=== PATIENT | male | born 1945 | race Caucasian/White ===

== ENCOUNTER 2017-10-28 00:45 | Emergency (ER) | payer OTHER ==
[2017-10-28 01:13] VITALS: BMI 30.9
[2017-10-28] MEDS ORDERED: PHENERGAN INJ 25 MG IM ONE (01:41)
[2017-10-28] MEDS ORDERED: TORADOL 60 MG VIAL IM ONE (01:41)
[2017-10-28] MEDS ORDERED: TORADOL 60 MG VIAL ONE (01:44)
--- NOTE | 2017-10-28 01:44 | DR.GENAD ---
HPI - PCP Primary Care Physician: ARLENE - Complaint/Symptoms Chief Complaint:: HURTING ALL OVER. LEFT ARM HURTS REAL BAD AND TINGLES. PATIENT HAS NOT TAKEN HIS ARTHRITIS MEDICINE IN ABOUT 3 WEEKS. Self Treatment fo Chief Complaint: ALEVE 2 TABS AT 1100 AND 1 TAB AT 2300 YESTERDAY. HYDROCODONE EVERY 4HOURS LAST DOSE AT 1900 LAST NIGHT - Nurses notes reviewed Nurses Notes Review: Yes - Source History Provided: Patient - Mode of Arrival Mode of Arrival: Ambulatory - Timing Onset of Chief Complaint: 10/22/17 Came on: Gradually - Duration Duration: Constant How lon Duration: Weeks - Location Location: hurting all over - Severity Severity: Moderate - Modifying Factors Worsens:: movement Improves:: nothing PMH - PMH Past Medical History: Yes Past Medical History: CVA, Diabetes, Hypertension Past Surgical History: Yes Surgical History: Cholecystectomy, Ortho Surgery - Family History History of Family Medical Conditions: Yes Family Medical History: [place], Coronary Artery Disease, Hypertension - Social History Does patient currently use any type of tobacco product: No Have you used tobacco products in the last 12 months: No Type of Tobacco Use: None Does any household member use tobacco: No Alcohol Use: None Do you use any recreational Drugs:: No Lives With: Spouse Lives Where: Home - infectious screening In the last 2 months have you had wt loss of >10#?: NO Have you had fever, night sweats or hemotysis?: No Have you traveled outside the country in the last 6 months?: No Isolation: Standard ROS - Review of Systems Constitutional: No Symptoms Reported. negative: See HPI, Chills, Diaphoresis, Fever, Malaise, Weakness, Irritable, Fatigue, Loss of Appetite, Other Eyes: No Symptoms Reported ENTM: No Symptoms Reported Respiratoy: No Symptoms Reported. negative: See HPI, Productive Cough, Non- Productive Cough, Moist Cough, Dry Cough, Hacking Cough, Barking Cough, Brassy Cough, Orthopnea, Short of Breath, Stridor, Wheezing, Hemoptysis, Other Cardiovascular: No Symptoms Reported. negative: See HPI, Chest Pain, Edema, Palpitations, Syncope, Cyanosis, Skin Mottling, Other Gastrointestinal/Abdominal: No Symptoms Reported Genitourinary: No Symptoms Reported. negative: See HPI, Discharge, Dysuria, Frequency, Hematuria, Pain, Bleeding, Other Neurological: No Symptoms Reported Musculoskeletal: No Symptoms Reported, Left, Back, Shoulder, Elbow, Knee Integumentary: No Symptoms Reported. negative: See HPI, Change in Color, Change in Hair/Nails, Dryness, Lesions, Lumps, Rash, Itching, Wound, Bruises, Juandice, Other Hematologic/Lymphatic: No Symptoms Reported Endocrine: No Symptoms Reported Psychiatric: No Symptoms Reported. negative: See HPI, Anxiety, Depression, Hallucinations, Excessive crying, Suicidal, Other PE - Vital Signs Vitals: Temperature 99.2 F Pulse Rate 84 Respiratory Rate 16 Blood Pressure 111/59 O2 Sat by Pulse Oximetry 95 - General Limitations: No Limitations General Appearance: Alert, In Distress (moderate) - Head Head Exam: Normal Inspection, Atraumatic, Normocephalic - Eyes Eye exam: Normal Appearance, PERRL, EOMI. negative: Scleral Icterus, Conjunctival Injection, Nystagmus, Miosis, Mydrasis, Periorbital Swelling, Periorbital Tenderness, Other - ENT ENT Exam: Normal Exam, Normal Oropharynx, Normal External Ear Exam, Mucous Membranes Moist, TM's Normal Bilaterally External Ear Exam: Normal External Inspection TM/Canal Exam: Bilateral Normal Nose Exam: Normal Nose Exam Mouth Exam: Normal Inspection. negative: Drooling, Trismus, Lip Swelling, Tongue Elevation, Tongue Swelling, Laceration, Other Throat Exam: Normal Inspection - Neck Neck Exam: Normal Inspection, Full ROM, Trachea Midline. negative: Tenderness, Meningismus, Lymphadenopathy, Thyromegaly, Other - Chest Chest Inspection: Normal Inspection, Symmetric Chest Wall Rise - Respiratory Respiratory Exam: Normal Lung Sounds Bilat Respiratory Exam: Bilateral Clear to Auscultation - Cardiovascular Cardiovascular Exam: Regular Rate, Normal Rhythm, Normal Heart Sounds. negative : Bradycardia, Tachycardia, Irregular Rhythm, Systolic Murmur, Diastolic Murmur , Rubs, Gallop, Clicks, JVD, +S1, +S2, +S3, +S4, Other - Abdominal Exam Abdominal Exam: Normal Inspection, Normal Bowel Sounds, Soft Abdominal Tenderness: negative: RUQ, RLQ, LUQ, LLQ, Epigastrium, Suprapubic, Diffuse, Mild, Moderate, Severe, Other - Extremities Extremities Exam: Normal Inspection, Full ROM, Tenderness (left shoulder,knee tender with crepitus), Normal Capillary Refill. negative: Edema, Joint Swelling , Calf Tenderness, Other - Back Back Exam: Normal Inspection, Full ROM, Tenderness (lower lumbar tender on palpation) - Neurologic Neurological Exam: Alert, Oriented X3, CN II-XII Intact, Normal Gait, Reflexes Normal - Psychiatric Psychiatric Exam: Normal Affect, Normal Mood - Skin Skin Exam: Warm, Dry, Intact, Normal Color - Diagnosis Discharge Problem: Osteoarthritis, Degenerative disc disease, lumbar, Degenerative disc disease at L5-S1 level Degenerative arthritis of knee Qualifiers: Laterality: bilateral - Discharge Plan Disposition: HOME, SELF-CARE Condition: Stable Prescriptions: Ketorolac Tromethamine [Toradol Tab] 10 mg PO BID PRN #8 tab PRN Reason: Pain - Follow ups/Referrals Follow ups/Referrals: Pete Calvillo [Primary Care Provider] - 3 days - Instructions Instructions: Knee Pain, Osteoarthritis, Chronic Pain
[2017-10-28 02:11] VITALS: BP 107/67
== END 2017-10-28 02:11 | disposition home or self-care (01) ==
LOC: ER 00:45
DX: M19.90 Unspecified osteoarthritis, unspecified site (principal); M51.36 Other intervertebral disc degeneration, lumbar region; M17.0 Bilateral primary osteoarthritis of knee
CPT/HCPCS: 96372; 99282; J1885

== ENCOUNTER 2017-10-30 10:11 | Observation (INO) | payer OTHER ==
[2017-10-30 11:44] LABS: BASOPHILS % (AUTO) 0.3 % (0.2-1.0); EOSINOPHILS % (AUTO) 0.4 % (0.9-2.9); HEMATOCRIT 39.7 % (42.0-54.0); HEMOGLOBIN 13.6 g/dL (13.5-18.0); LYMPHOCYTES # (AUTO) 1.6 X10^3/uL (1.3-2.9); LYMPHOCYTES % (AUTO) 14.5 % (21.0-51.0); MEAN CORPUSCULAR HEMOGLOBIN 30.8 pg (27.0-34.0); MEAN CORPUSCULAR HGB CONC 34.2 g/dL (33.0-35.0); MEAN CORPUSCULAR VOLUME 89.8 fL (80.0-100.0); MEAN PLATELET VOLUME 7.9 fL (7.4-11.0); MONOCYTES # (AUTO) 1.6 x10^3/uL (0.3-0.8); NEUTROPHILS # (AUTO) 7.5 x10^3/uL (2.2-4.8); NEUTROPHILS % (AUTO) 69.8 % (42.0-75.0); PLATELET COUNT 237 X10^3/uL (150.0-450.0); RED BLOOD COUNT 4.42 X10^6/uL (4.7-6.0); RED CELL DISTRIBUTION WIDTH 15.2 % (11.6-16.5); WHITE BLOOD COUNT 10.8 X10^3/uL (3.6-10.0)
[2017-10-30 11:58] VITALS: BMI 31.4
[2017-10-30 12:14] LABS: ALANINE AMINOTRANSFERASE 36 Units/L (12-78); ALBUMIN 3.3 g/dL (3.4-5.0); ALKALINE PHOSPHATASE 55 Units/L (46-116); ASPARTATE AMINO TRANSFERASE 17 Units/L (15-37); BLOOD UREA NITROGEN 23 mg/dL (7-18); CALCIUM 8.7 mg/dL (8.5-10.1); CARBON DIOXIDE 27.1 mmol/L (21-32); CHLORIDE 96 mmol/L (98-107); COR CA(FOR HYPOALB) 9.3 mg/dL (8.5-10.1); COR NA(FOR HYPERGLY) 135 mmol/L (136-145); CREATINE KINASE 49 Units/L (39-308); CREATINE KINASE MB < 1.0 ng/mL (0-4.0); CREATININE 1.07 mg/dL (0.70-1.30); SODIUM 133 mmol/L (136-145); TOTAL PROTEIN 7.5 g/dL (6.4-8.2); TROPONIN I < 0.02 ng/mL (0-1.5); eGFR BLACK RACES > 60 (>60); eGFR NON BLACK RACES > 60 (>60)
[2017-10-30] MEDS: SOLU-Medrol 40 MG VIAL IVP SCH ×3 (12:33→21:02)
[2017-10-30] MEDS: NS 1000 ML 1,000 ML IV SCH (12:33)
[2017-10-30] MEDS: MORPHINE SULFATE INJ 2 MG INJ IVP PRN ×2 (12:33→19:00)
--- NOTE | 2017-10-30 12:49 | CT ---
HISTORY: Left leg weakness x2 days Study: CT brain without contrast Comparison: None Technique: Multiple axial images of the brain were obtained from the skull base to the vertex without administra tion of IV contrast. Dose reduction techniques including Automated Exposure Control (AEC) and adjust ment of mA and kV were utilized. Findings: There is atrophy and nonspecific white matter hypoattenuation likely related to microvascular ischemi c changes. There is encephalomalacia in the bilateral occipital lobes, greater on the left suggesting old infarctions. There is mild diffuse cerebellar atrophy also noted. The left vertebral artery is h eavily calcified and dominant. No evidence of acute hemorrhage, midline shift, mass effect or abnorma l extra-axial fluid collection. The ventricular system is symmetric and nondilated. The soft tissue s and osseous structures are unremarkable. The visualized paranasal sinuses are clear. IMPRESSION: 1. Cerebral atrophy and nonspecific white matter changes likely due to microvascular disease with enc ephalomalacia in the bilateral occipital lobe suggesting old infarctions. Reported By:
[2017-10-30 13:29] LABS: BILIRUBIN,URINE NEGATIVE (NEGATIVE); BLOOD/HEMOGLOBIN,URINE NEGATIVE (NEGATIVE); GLUCOSE, URINE NEGATIVE (NEGATIVE); KETONES,URINE NEGATIVE (NEGATIVE); LEUKOCYTE ESTERASE ,URINE NEGATIVE (NEGATIVE); NITRITES,URINE NEGATIVE (NEGATIVE); PROTEIN,URINE NEGATIVE (NEGATIVE); UROBILINOGEN,URINE NORMAL (NORMAL)
[2017-10-30 13:40] LABS: APPEARANCE,URINE CLEAR (CLEAR); BACTERIA,URINE TRACE /HPF (NEGATIVE); COLOR,URINE YELLOW (YELLOW); RBC,URINE 0-1 /HPF (NEGATIVE); SQUAMOUS EPITHELIAL CELL,UR NEGATIVE /HPF (NEGATIVE)
--- NOTE | 2017-10-30 14:37 | RAD ---
HISTORY: Left leg weakness Study: Chest AP portable Comparison: None available Findings: The heart is within normal limits in size. The cookie are normal. The lungs are well inflated and clear . No pleural effusions are identified. The bony thorax is unremarkable. IMPRESSION: Clear chest Reported By:
[2017-10-30 15:43] LABS: CKMB % 2.1 % (<4); CREATINE KINASE 47 Units/L (39-308); CREATINE KINASE MB < 1.0 ng/mL (0-4.0); TROPONIN I < 0.02 ng/mL (0-1.5)
[2017-10-30] MEDS: HumuLIN R SUBCUT PRN (20:21)
[2017-10-30 20:30] LABS: CKMB % 2.3 % (<4); CREATINE KINASE 44 Units/L (39-308); CREATINE KINASE MB < 1.0 ng/mL (0-4.0); TROPONIN I < 0.02 ng/mL (0-1.5)
[2017-10-31] MEDS: NS 1000 ML 1,000 ML IV SCH ×2 (05:45→14:49)
[2017-10-31] MEDS: HumuLIN R SUBCUT PRN ×3 (06:21→21:56)
[2017-10-31] MEDS: SOLU-Medrol 40 MG VIAL IVP SCH ×3 (06:22→21:48)
[2017-10-31 06:23] LABS: BASOPHILS % (AUTO) 0.2 % (0.2-1.0); HEMATOCRIT 36.9 % (42.0-54.0); HEMOGLOBIN 12.8 g/dL (13.5-18.0); LYMPHOCYTES % (AUTO) 8.6 % (21.0-51.0); MEAN CORPUSCULAR HEMOGLOBIN 30.6 pg (27.0-34.0); MEAN CORPUSCULAR HGB CONC 34.7 g/dL (33.0-35.0); MEAN CORPUSCULAR VOLUME 88.1 fL (80.0-100.0); MEAN PLATELET VOLUME 7.7 fL (7.4-11.0); MONOCYTES # (AUTO) 0.4 x10^3/uL (0.3-0.8); MONOCYTES % (AUTO) 3.8 % (0.0-13.0); NEUTROPHILS # (AUTO) 9.9 x10^3/uL (2.2-4.8); NEUTROPHILS % (AUTO) 87.4 % (42.0-75.0); PLATELET COUNT 217 X10^3/uL (150.0-450.0); RED BLOOD COUNT 4.19 X10^6/uL (4.7-6.0); RED CELL DISTRIBUTION WIDTH 15.3 % (11.6-16.5); WHITE BLOOD COUNT 11.3 X10^3/uL (3.6-10.0)
[2017-10-31 06:51] LABS: ALANINE AMINOTRANSFERASE 39 Units/L (12-78); ALBUMIN 2.8 g/dL (3.4-5.0); ALKALINE PHOSPHATASE 50 Units/L (46-116); ASPARTATE AMINO TRANSFERASE 22 Units/L (15-37); BLOOD UREA NITROGEN 22 mg/dL (7-18); CALCIUM 8.4 mg/dL (8.5-10.1); CARBON DIOXIDE 23.4 mmol/L (21-32); CHLORIDE 100 mmol/L (98-107); COR CA(FOR HYPOALB) 9.4 mg/dL (8.5-10.1); COR NA(FOR HYPERGLY) 139 mmol/L (136-145); CREATININE 1.01 mg/dL (0.70-1.30); SODIUM 135 mmol/L (136-145); TOTAL PROTEIN 7.2 g/dL (6.4-8.2); eGFR BLACK RACES > 60 (>60); eGFR NON BLACK RACES > 60 (>60)
[2017-10-31 07:10] LABS: ERYTHROCYTE SEDIMENTATION RATE 69 MM/HOUR (0-15)
[2017-10-31] MEDS ORDERED: NORCO 5/325 MG TAB PO PRN (10:28)
[2017-10-31] MEDS ORDERED: [UNRECOGNIZED DRUG - OTHER] PO SCH (10:30)
[2017-10-31] MEDS ORDERED: PATIENT'S HOME MEDICATION (Omeprazole [Omeprazole] 1 CAP) PO SCH (10:30)
[2017-10-31] MEDS ORDERED: PATIENT'S HOME MEDICATION (Lisinopril/Hydrochlorothiazide [Lisinopril-Hctz 20-12.5 Mg Tab] PO SCH (10:30)
[2017-10-31] MEDS ORDERED: GRAPE SEED EXTRACT PO SCH (10:30)
--- NOTE | 2017-10-31 10:53 | DR.UPDATE ---
H&P Update History and Physical Update: WAS SEEN IN THE OFFICE ON 10/30/17. A H&P WAS COMPLETED PRIOR TO ADMISSION. PATIENT HAS BEEN SEEN AND EXAMINED WITH NO CHANGES NOTED TO H&P. Changes noted: NO Yes with the following:
[2017-10-31] MEDS ORDERED: VALIUM PO ONE (11:16)
[2017-10-31] MEDS ORDERED: ZESTRIL TAB 20 MG ONE (12:03)
[2017-10-31] MEDS: PriLOSEC PO SCH (12:06)
[2017-10-31] MEDS: ZESTRIL TAB 20 MG PO SCH (12:07)
[2017-10-31] MEDS: ASPIRIN PO SCH (12:07)
[2017-10-31] MEDS: JANUVIA PO SCH (12:07)
[2017-10-31] MEDS: GLUCOTROL PO SCH (12:07)
[2017-10-31] MEDS: FOLIC ACID TAB 1 MG PO SCH (12:07)
[2017-10-31] MEDS: TERBINAFINE HCL PO SCH (13:03)
--- NOTE | 2017-10-31 16:04 | MRI ---
STUDY: MRI OF THE BRAIN WITHOUT AND WITH GADOLINIUM HISTORY: Headaches. Left-sided weakness. Left leg weakness. Technique: Multiplanar multi-sequence MRI of the brain was obtained using standard departmental daxa col. Sagittal and axial T1, axial T2, FLAIR, diffusion (DWI/ADC), GRE, and coronal T2 images through the brain were performed. 19 cc of Omniscan was administered intravenously without reported complication following acquisition of informed written consent. Post gadolinium axial and coronal T1 weighted images were also performed and reviewed. Comparison: Head CT from October 30, 2017. Findings: Pre gadolinium brain: The sulci, cisterns and ventricles are prominent consistent with diffuse volume loss. There are scattered foci of T2 prolongation in the periventricular and subcortical white matte r of both hemispheres. This is a nonspecific finding which likely represents microangiopathic change in a patient of this age. There is an old infarct with encephalomalacia in the left occipital lobe. There is a smaller old infa rct in the right occipital lobe. There is a probable old infarct in the left cerebellar hemisphere. There is no evidence of acute territorial infarction, hemorrhage, mass, mass effect, or midline shift . There are no abnormal intra-axial or extra-axial fluid collections. The major intracranial vascular flow voids appear intact. The left vertebral artery is dominant. Post gadolinium brain: Following the uneventful administration of intravenous gadolinium, there is no evidence of abnormal parenchymal or leptomeningeal enhancement. IMPRESSION: 1. No evidence of acute intracranial abnormality. 2. Chronic infarct with encephalomalacia involving the occipital lobes, left greater than right. 3. Probable old infarct in the left cerebellar hemisphere. 4. Nonspecific white matter change and volume loss. Reported By:
[2017-10-31] MEDS ORDERED: ZANTAC PO SCH (21:00)
[2017-10-31] MEDS ORDERED: CRESTOR TAB 10 MG PO SCH (21:00)
[2017-11-01] MEDS: NS 1000 ML 1,000 ML IV SCH (04:45)
[2017-11-01] MEDS: SOLU-Medrol 40 MG VIAL IVP SCH (05:27)
[2017-11-01] MEDS: HumuLIN R SUBCUT PRN ×2 (05:57→11:07)
[2017-11-01 06:26] LABS: BASOPHILS % (AUTO) 0.2 % (0.2-1.0); HEMATOCRIT 36.9 % (42.0-54.0); HEMOGLOBIN 12.8 g/dL (13.5-18.0); LYMPHOCYTES # (AUTO) 1.6 X10^3/uL (1.3-2.9); LYMPHOCYTES % (AUTO) 12.5 % (21.0-51.0); MEAN CORPUSCULAR HEMOGLOBIN 30.4 pg (27.0-34.0); MEAN CORPUSCULAR HGB CONC 34.6 g/dL (33.0-35.0); MEAN CORPUSCULAR VOLUME 87.7 fL (80.0-100.0); MEAN PLATELET VOLUME 7.8 fL (7.4-11.0); MONOCYTES # (AUTO) 0.5 x10^3/uL (0.3-0.8); MONOCYTES % (AUTO) 3.8 % (0.0-13.0); NEUTROPHILS # (AUTO) 10.8 x10^3/uL (2.2-4.8); NEUTROPHILS % (AUTO) 83.5 % (42.0-75.0); PLATELET COUNT 239 X10^3/uL (150.0-450.0); RED BLOOD COUNT 4.21 X10^6/uL (4.7-6.0); RED CELL DISTRIBUTION WIDTH 15.2 % (11.6-16.5); WHITE BLOOD COUNT 12.9 X10^3/uL (3.6-10.0)
[2017-11-01 06:38] LABS: ALANINE AMINOTRANSFERASE 40 Units/L (12-78); ALBUMIN 2.7 g/dL (3.4-5.0); ALKALINE PHOSPHATASE 46 Units/L (46-116); ASPARTATE AMINO TRANSFERASE 19 Units/L (15-37); BLOOD UREA NITROGEN 25 mg/dL (7-18); CALCIUM 8.4 mg/dL (8.5-10.1); CARBON DIOXIDE 21.1 mmol/L (21-32); CHLORIDE 102 mmol/L (98-107); COR CA(FOR HYPOALB) 9.4 mg/dL (8.5-10.1); COR NA(FOR HYPERGLY) 140 mmol/L (136-145); CREATININE 0.89 mg/dL (0.70-1.30); SODIUM 136 mmol/L (136-145); TOTAL PROTEIN 6.9 g/dL (6.4-8.2); eGFR BLACK RACES > 60 (>60); eGFR NON BLACK RACES > 60 (>60)
[2017-11-01] MEDS ORDERED: ZESTRIL TAB 20 MG ONE (08:29)
[2017-11-01] MEDS: JANUVIA PO SCH (08:48)
[2017-11-01] MEDS: PriLOSEC PO SCH (08:48)
[2017-11-01] MEDS: ASPIRIN PO SCH (08:48)
[2017-11-01] MEDS: ZESTRIL TAB 20 MG PO SCH (08:48)
[2017-11-01] MEDS: FOLIC ACID TAB 1 MG PO SCH (08:48)
[2017-11-01] MEDS: GLUCOTROL PO SCH (08:48)
[2017-11-01] MEDS: TERBINAFINE HCL PO SCH (08:49)
[2017-11-01] MEDS ORDERED: HYDROCHLOROTHIAZIDE 12.5 MG CAP PO SCH (09:00)
[2017-11-01 10:24] VITALS: BP 150/70
--- NOTE | 2017-11-01 11:19 | PCM.PROG ---
Progress Note - Progress Note for Day of Date: 10/31/17 - Subjective Subjective: WAS ADMITTED FOR ACUTE LEFT LEG WEAKNESS, POSSIBLE CVA, AND RHEUMATOID ARTHRITIS FLARE. TODAY, HE IS ALERT AND ORIENTED, SITTING UP IN BED ON MORNING ROUNDS. PATIENTS SPOUSE IS AT BEDSIDE. TODAY, HE CONTINUES WITH COMPLAINTS OF LEFT LEG WEAKNESS AND COMPLAINTS OF ACHING IN MY JOINTS. ON EXAMINATION, HEART IS REGULAR IN RATE AND RHYTHM. BILATERAL LUNGS ARE NOTED TO BE CLEAR TO AUSCULTATION. ABDOMEN IS ROUND, SOFT, AND NON-TENDER WITH NORMAL BOWEL SOUNDS NOTED IN ALL QUADRANTS. HE IS NOTED WITH TENDERNESS TO THE LEFT LEG ON EXAMINATION AND REPORTS BEING UNSTEADY WHEN AMBULATING DUE TO WEAKNESS. HIS VITALS THIS MORNING ARE 98.0-86-21-98%-139/75. LABS WERE OBTAINED THIS MORNING. ABNORMAL LAB VALUES INCLUDE THE FOLLOWING: WBC 11.3, RBC 4.19, HGB 12.8 , HCT 36.9, SODIUM 135, BUN 22, GLUCOSE 252, CALCIUM 8.4, CRP 55.50, ALBUMIN 2.8. A BRAIN CT WAS OBTAINED ON ADMISSION AND REPORTED CEREBRAL ATROPHY AND NONSPECIFIC WHITE MATTER CHANGES LIKELY DUE TO MICROVASCULAR DISEASE WITH ENCEPHALOMALACIA IN THE BILATERAL OCCIPITAL LOBE SUGGESTING OLD INFARCTIONS. TODAY, WE PLAN TO OBTAIN A BRAIN MRI WITH CONTRAST. OTHERWISE, WE WILL CONTINUE WITH CURRENT PLAN OF CARE. WE PLAN TO FOLLOW UP WITH AM LABS AND CONTINUE TO MONITOR PATIENT. - Past Medical Family Social History Past Med/Fam/Surg Hx: No changes since H&P Allergies: Allergies No Known Drug Allergies Allergy (Verified 10/28/17 01:33) - Review of Systems ROS: No change since H&P - Vital Signs and I&O's Vital Signs: Temperature 97.5 F Pulse Rate [Apical] 76 Pulse Rate [Right Brachial] 74 Respiratory Rate 18 Blood Pressure [Left Arm] 150/70 Blood Pressure 107/67 O2 Sat by Pulse Oximetry 97 Intake and Output: Intake & Output 10/29/17 10/30/17 10/31/17 11/01/17 11:59 11:59 11:59 11:59 Intake Total 2062 2443 Output Total 1200 700 Balance 862 1743 - Physical Exam Oriented: Normal Eyes: Normal Ear: Normal Nose: Normal Throat: Normal Respiratory: Normal Cardiovascular: Normal. negative: S3, S4, Murmur : Normal Auscultation: Bowel Sounds: Normal Palpation: Normal Tenderness: Normal. negative: Rebound, Guarding, Rigidity Skin: Normal Musculoskeletal: Left, Leg, Tender, Instability Psychiatric: Normal Mood Description: Calm Affect: Normal Speech Pattern: Clear, Appropriate - Laboratory and Diagnostics Result Diagrams: 11/01/17 05:21 11/01/17 05:21 Labs: Laboratory WBC 12.9 X10^3/uL (3.6-10.0) H 11/01/17 05:21 RBC 4.21 X10^6/uL (4.7-6.0) L 11/01/17 05:21 Hgb 12.8 g/dL (13.5-18.0) L 11/01/17 05:21 Hct 36.9 % (42.0-54.0) L 11/01/17 05:21 MCV 87.7 fL (80.0-100.0) 11/01/17 05:21 MCH 30.4 pg (27.0-34.0) 11/01/17 05:21 MCHC 34.6 g/dL (33.0-35.0) 11/01/17 05:21 RDW 15.2 % (11.6-16.5) 11/01/17 05:21 Plt Count 239 X10^3/uL (150.0-450.0) 11/01/17 05:21 MPV 7.8 fL (7.4-11.0) 11/01/17 05:21 Neut % 83.5 % (42.0-75.0) H 11/01/17 05:21 Lymph % 12.5 % (21.0-51.0) L 11/01/17 05:21 [place] % 3.8 % (0.0-13.0) 11/01/17 05:21 Eos % 0.0 % (0.9-2.9) L 11/01/17 05:21 Baso % 0.2 % (0.2-1.0) 11/01/17 05:21 Neut # 10.8 x10^3/uL (2.2-4.8) H 11/01/17 05:21 Lymph # 1.6 X10^3/uL (1.3-2.9) 11/01/17 05:21 [place] # 0.5 x10^3/uL (0.3-0.8) 11/01/17 05:21 Eos # 0.0 x10^3/uL (0.0-0.2) 11/01/17 05:21 Baso # 0.0 X10^3/uL (0.0-0.1) 11/01/17 05:21 Absolute Nucleated RBC 0.1 /100WBC 11/01/17 05:21 ESR 69 MM/HOUR (0-15) H 10/31/17 05:36 Sodium 136 mmol/L (136-145) 11/01/17 05:21 Corrected Sodium 140 mmol/L (136-145) 11/01/17 05:21 Potassium 4.5 mmol/L (3.5-5.1) 11/01/17 05:21 Chloride 102 mmol/L (98-107) 11/01/17 05:21 Carbon Dioxide 21.1 mmol/L (21-32) 11/01/17 05:21 BUN 25 mg/dL (7-18) H 11/01/17 05:21 Creatinine 0.89 mg/dL (0.70-1.30) 11/01/17 05:21 Est GFR (MDRD) Af Amer > 60 (>60) 11/01/17 05:21 Est GFR (MDRD) Non-Af > 60 (>60) 11/01/17 05:21 Glucose 248 mg/dL (65-99) H 11/01/17 05:21 POC Glucose (mg/dL) 306 mg/dL (65-99) H 11/01/17 11:00 Calcium 8.4 mg/dL (8.5-10.1) L 11/01/17 05:21 Corrected Calcium 9.4 mg/dL (8.5-10.1) 11/01/17 05:21 Total Bilirubin 0.10 mg/dL (0.2-1.0) L 11/01/17 05:21 AST 19 Units/L (15-37) 11/01/17 05:21 ALT 40 Units/L (12-78) 11/01/17 05:21 Alkaline Phosphatase 46 Units/L (46-116) 11/01/17 05:21 Creatine Kinase 44 Units/L (39-308) 10/30/17 19:45 CK-MB (CK-2) < 1.0 ng/mL (0-4.0) 10/30/17 19:45 CK/CKMB % Calc 2.3 % (<4) 10/30/17 19:45 Troponin I < 0.02 ng/mL (0-1.5) 10/30/17 19:45 C-Reactive Protein 55.50 mg/L (0-3.0) H 10/31/17 05:36 Total Protein 6.9 g/dL (6.4-8.2) 11/01/17 05:21 Albumin 2.7 g/dL (3.4-5.0) L 11/01/17 05:21 Globulin 4.2 g/dL (2.5-4.5) 11/01/17 05:21 Albumin/Globulin Ratio 0.6 Ratio (1.1-2.1) L 11/01/17 05:21 Specimen Type Clean catch urine 10/30/17 13:18 Urine Color Yellow (YELLOW) 10/30/17 13:18 Urine Appearance Clear (CLEAR) 10/30/17 13:18 Urine pH 7.0 (5.0 - 8.0) 10/30/17 13:18 Ur Specific [place] 1.010 (1.000-1.030) 10/30/17 13:18 Urine Protein Negative (NEGATIVE) 10/30/17 13:18 Urine Glucose (UA) Negative (NEGATIVE) 10/30/17 13:18 Urine Ketones Negative (NEGATIVE) 10/30/17 13:18 Urine Occult Blood Negative (NEGATIVE) 10/30/17 13:18 Urine Nitrite Negative (NEGATIVE) 10/30/17 13:18 Urine Bilirubin Negative (NEGATIVE) 10/30/17 13:18 Urine Urobilinogen Normal (NORMAL) 10/30/17 13:18 Ur Leukocyte Esterase Negative (NEGATIVE) 10/30/17 13:18 Urine RBC 0-1 /HPF (NEGATIVE) 10/30/17 13:18 Urine WBC None seen /HPF (NEGATIVE) 10/30/17 13:18 Ur Squamous Epith Cells Negative /HPF (NEGATIVE) 10/30/17 13:18 Urine Bacteria Trace /HPF (NEGATIVE) 10/30/17 13:18 Ur Culture Indicated? No/not indicated 10/30/17 13:18 - Plan (1) Transient left leg weakness Status: Acute Plan: OBTAIN BRAIN MRI WITH CONTRAST TO RULE OUT ACUTE CVA, CONTINUE TO MONITOR (2) Rheumatoid arthritis flare Status: Acute Plan: [id number] 20MG IV Q8H, CONTINUE HOME MEDICATIONS, CONTINUE TO MONTIOR
[2017-11-06] MEDS ORDERED: METHOTREXATE PO SCH (12:00)
== END 2017-11-01 11:55 | disposition home or self-care (01) ==
LOC: OBS 10:11 → ICU 10:58
PROVIDERS: ADMIT Internal Medicine; ATTEND Internal Medicine
DX: R53.1 Weakness (principal); M06.89 Other specified rheumatoid arthritis, multiple sites; M06.4 Inflammatory polyarthropathy; I67.89 Other cerebrovascular disease; I10 Essential (primary) hypertension; E78.2 Mixed hyperlipidemia; E55.9 Vitamin D deficiency, unspecified; E11.65 Type 2 diabetes mellitus with hyperglycemia; E03.8 Other specified hypothyroidism
CPT/HCPCS: 36415; 70450; 70553; 71045; 80053; 81001; 82550; 82553; 84484; 85025; 85652; 86140; 93005; 94760; A4222; G0378; J1815; J2270; J2920

== ENCOUNTER 2017-12-20 16:32 | Emergency (ER) | payer OTHER ==
[2017-12-20 16:36] VITALS: BP 111/56; BMI 30.7
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
[2017-12-20 17:07] LABS: BASOPHILS % (AUTO) 0.2 % (0.2-1.0); HEMATOCRIT 39.9 % (42.0-54.0); HEMOGLOBIN 13.7 g/dL (13.5-18.0); LYMPHOCYTES # (AUTO) 0.2 X10^3/uL (1.3-2.9); LYMPHOCYTES % (AUTO) 1.7 % (21.0-51.0); MEAN CORPUSCULAR HEMOGLOBIN 30.4 pg (27.0-34.0); MEAN CORPUSCULAR HGB CONC 34.4 g/dL (33.0-35.0); MEAN CORPUSCULAR VOLUME 88.2 fL (80.0-100.0); MEAN PLATELET VOLUME 7.1 fL (7.4-11.0); MONOCYTES # (AUTO) 0.5 x10^3/uL (0.3-0.8); MONOCYTES % (AUTO) 4.8 % (0.0-13.0); NEUTROPHILS # (AUTO) 10.5 x10^3/uL (2.2-4.8); NEUTROPHILS % (AUTO) 93.3 % (42.0-75.0); PLATELET COUNT 196 X10^3/uL (150.0-450.0); RED BLOOD COUNT 4.52 X10^6/uL (4.7-6.0); RED CELL DISTRIBUTION WIDTH 16.1 % (11.6-16.5); WHITE BLOOD COUNT 11.2 X10^3/uL (3.6-10.0)
[2017-12-20 17:21] LABS: PLATELET MORPHOLOGY COMMENT NORMAL (NORMAL)
--- NOTE | 2017-12-20 17:25 | CT ---
HISTORY: Neck pain Study: CT cervical spine without contrast Comparison: None Technique: Multiple axial images of the cervical spine were obtained from the skull base to the thora cic inlet without administration of IV contrast. Sagittal and coronal reformats were performed and r eviewed. Findings: The cervical vertebral body heights are relatively maintained.. No evidence of significant subluxatio n can be seen. The central canal remains free of compromise from bony fragments. Degenerate facet c hanges are seen throughout the cervical spine. Multilevel intervertebral disc space narrowing and ost eophytosis are demonstrated as well. Degenerative changes of the odontoid are also noted. If symptoms or clinical concern persist correlation with MRI may be helpful. IMPRESSION: 1. Multilevel degenerative changes as noted above. Reported By:
--- NOTE | 2017-12-20 17:27 | CT ---
HISTORY: Head pain, previous CVA Study: CT brain without contrast Comparison: October 30, 2017 Technique: Multiple axial images of the brain were obtained from the skull base to the vertex without administra tion of IV contrast. Findings: No acute intraparenchymal hemorrhage or mass can be identified. No extra-axial fluid collections are seen. No alteration in the attenuation of the brain parenchyma can be identified to suggest acute o r subacute ischemic change. The ventricles, sulci, and cisterns demonstrate an appearance consistent with a mild degree of generalized atrophy. Remote bilateral occipital lobe infarcts are again demons trated. Patchy areas of decreased attenuation within the periventricular, subcortical, and subinsular white matter suggest changes of chronic small vessel ischemic disease. If symptoms or clinical conc bentley persist recommend continued follow-up for further evaluation. IMPRESSION: No acute intracranial process can be identified. Mild generalized atrophy with findings consistent with changes of chronic small vessel ischemic disea se. Remote bilateral occipital infarcts which were also demonstrated on prior exam. Reported By:
[2017-12-20 18:49] LABS: ALANINE AMINOTRANSFERASE 94 Units/L (12-78); ALBUMIN 4.2 g/dL (3.4-5.0); ALKALINE PHOSPHATASE 58 Units/L (46-116); ASPARTATE AMINO TRANSFERASE 45 Units/L (15-37); BLOOD UREA NITROGEN 23 mg/dL (7-18); CALCIUM 8.9 mg/dL (8.5-10.1); CARBON DIOXIDE 23.1 mmol/L (21-32); CHLORIDE 96 mmol/L (98-107); COR NA(FOR HYPERGLY) 133 mmol/L (136-145); CREATININE 1.57 mg/dL (0.70-1.30); SODIUM 132 mmol/L (136-145); TOTAL PROTEIN 8.2 g/dL (6.4-8.2); eGFR BLACK RACES 56 (>60); eGFR NON BLACK RACES 46 (>60)
== END 2017-12-20 19:10 | disposition home or self-care (01) ==
LOC: ER 16:40
DX: M50.30 Other cervical disc degeneration, unspecified cervical region (principal); G89.11 Acute pain due to trauma; E87.1 Hypo-osmolality and hyponatremia; G31.89 Other specified degenerative diseases of nervous system; V89.2XXA Person injured in unspecified motor-vehicle accident, traffic, initial encounter; Y92.9 Unspecified place or not applicable
CPT/HCPCS: 36415; 70450; 72125; 80053; 85025; 99283; 99284

== ENCOUNTER 2018-01-20 08:12 | Emergency (ER) | payer OTHER ==
[2018-01-20 08:18] VITALS: BMI 29.0
--- NOTE | 2018-01-20 09:11 | DR.EXTPAIN ---
HPI - Time seen Time seen: 08:15 - PCP Primary Care Physician: carlee - HPI Comment HPI Comment: INCREASING LOWER BACK PAIN. HISTORY BACK PAIN. - Complaint/Symptoms Chief Complaint Doctor Comments: FELL, INJURY LOWER BACK. Chief Complaint:: pt stated he was removing his pants and he fell back and hurt his lower back - Nurses notes reviewed Nurses Notes Review: Yes - Source History Provided: Patient - Mode of arrival Mode of Arrival: Ambulatory - Timing Onset of Chief Complaint: 01/19/18 - Context History of: Arthritis - Associated signs and symptoms Associated Signs and Symptoms: Pain PMH - PMH Past Medical History: Yes Past Medical History: CVA, Diabetes, Hypertension Past Surgical History: Yes Surgical History: Cholecystectomy, Ortho Surgery - Family History History of Family Medical Conditions: Yes Family Medical History: [place], Coronary Artery Disease, Hypertension - Social History Does patient currently use any type of tobacco product: No Have you used tobacco products in the last 12 months: No Type of Tobacco Use: None Does any household member use tobacco: No Alcohol Use: None Do you use any recreational Drugs:: No Lives With: Family Lives Where: Home - infectious screening In the last 2 months have you had wt loss of >10#?: NO Have you had fever, night sweats or hemotysis?: No Have you traveled outside the country in the last 6 months?: No Isolation: Standard ROS - Review of Systems Constitutional: No Symptoms Reported Eyes: No Symptoms Reported ENTM: No Symptoms Reported Respiratoy: No Symptoms Reported Cardiovascular: No Symptoms Reported Gastrointestinal/Abdominal: No Symptoms Reported Genitourinary: No Symptoms Reported Neurological: No Symptoms Reported Musculoskeletal: Back Pain, Back Integumentary: No Symptoms Reported Hematologic/Lymphatic: No Symptoms Reported Endocrine: No Symptoms Reported Psychiatric: No Symptoms Reported All Other Systems: Reviewed and Negative PE - Vital Signs Vitals: Temperature 98.6 F Pulse Rate [Left Brachial] 67 Pulse Rate 70 Respiratory Rate 18 Blood Pressure [Left Arm] 103/68 Blood Pressure 99/57 O2 Sat by Pulse Oximetry 99 - General Limitations: No Limitations General Appearance: Alert - Head Head Exam: Normal Inspection - Eyes Eye exam: Normal Appearance - ENT ENT Exam: Normal External Ear Exam - Neck Neck Exam: Trachea Midline - Chest Chest Inspection: Symmetric Chest Wall Rise - Respiratory Respiratory Exam: Normal Lung Sounds Bilat, Prolonged Expiratory Phase Respiratory Exam: Bilateral Clear to Auscultation - Cardiovascular Cardiovascular Exam: Regular Rate, Normal Rhythm, Normal Heart Sounds - Abdominal Exam Abdominal Exam: Normal Bowel Sounds, Soft. negative: Tenderness - Extremities Extremities Exam: Normal Inspection - Lower Extremities Neurovascular/Tendon Exam: Normal Capillary Refill Gait Exam: Observed & Limited by Pain - Back Back Exam: Paraspinal Tenderness (LOWER BACK.) - Neurological Neurological Exam: Alert, Oriented X3 - Psychiatric Psychiatric Exam: Normal Affect, Normal Mood - Skin Skin Exam: Normal Color MDM - Differential Diagnosis Differential Diagnosis: Contusion, Fracture, Sprain Course - Treatment Treatment: SEE ORDERS. TOOK MED FOR PAIN BEFORE COMING. - Education/Counseling Education/Counseling: Patient, Family, Education Educated On: Diagnosis, Needs for Follow Up ROR - XRAY XRAY Interpreted by: Radiologist XRAY Findings: REPORT DISCUSS WITH PATIENT AND HIS . - Diagnosis Discharge Problem: Back pain Qualifiers: Back pain location: low back pain Chronicity: acute Back pain laterality: bilateral Sciatica presence: without sciatica Qualified Code(s): M54.5 - Low back pain Lumbosacral strain Qualifiers: Encounter type: initial encounter Qualified Code(s): S39.012A - Strain of muscle, fascia and tendon of lower back, initial encounter - Discharge Plan Disposition: HOME, SELF-CARE Condition: Stable - Follow ups/Referrals Follow ups/Referrals: Pete Calvillo [Primary Care Provider] - 2 days - Instructions Instructions: Lumbosacral Strain Additional Instructions: RETURN TO ED IF WORSE.
--- NOTE | 2018-01-20 09:40 | CT ---
History: Back pain. Possible fracture. Exam: Noncontrast CT examination of the lumbar spine. Technique: Noncontrast axial CT images of the lumbar spine were performed from the thoraco lumbar fatmata ction to the sacrum without the use of IV contrast. Reformatted sagittal and coronal CT images of the lumbar spine were also performed this examination. Findings: There is leftward convex lumbar scoliosis and moderate lumbar spondylosis and facet joint DJD seen di ffusely. There is moderate foraminal narrowing and spinal canal narrowing seen from L3 through S1 whi ch can be followed up with lumbar spine MRI imaging on outpatient basis. There is no evidence for acu te fracture or compression deformity. No pars defect or L-spine subluxation is seen. Left-sided simpl e measuring renal cysts are noted. There is scattered aortic atherosclerosis. No aortic aneurysm is s een. The sacrum is unremarkable appearance. 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 No lytic bony lesion is seen. There is no evidence for discitis. No other bony abnor malities are observed. Impression: Degenerative lumbar spondylosis / scoliosis with moderate foraminal spinal canal narrowin g seen from L3 - S1 which can be followed up with MRI imaging on an outpatient basis without evidence for acute fracture, subluxation, or destructive lytic bony process. Reported By:
[2018-01-20 09:44] VITALS: BP 103/68
== END 2018-01-20 09:44 | disposition home or self-care (01) ==
LOC: ER 08:25
DX: S39.012A Strain of muscle, fascia and tendon of lower back, initial encounter (principal); M54.5 Low back pain; W19.XXXA Unspecified fall, initial encounter; Y92.9 Unspecified place or not applicable
CPT/HCPCS: 72131; 99282